=== PATIENT | male | born 1985 | race Caucasian/White ===

== ENCOUNTER 2016-09-16 15:36 | Emergency (ER) | payer OTHER ==
[2016-09-16 15:44] VITALS: RESP 16
[2016-09-16 16:02] LABS: Glucose,Whole Blood 122 mg/dL (75-99)
[2016-09-16] MEDS ORDERED: NALOXONE 0.4 MG/ML 1 ML VIAL IV STA (16:08)
[2016-09-16] MEDS ORDERED: SODIUM CHLORIDE 0.9% 1,000 ML IV ONE ×2 (16:08)
--- NOTE | 2016-09-16 16:11 | ED ---
General Adult HPI - General Chief complaint: Altered Mental Status Stated complaint: Syncope Time Seen by Provider: 09/16/16 15:52 Source: family, RN notes reviewed, old records reviewed Mode of arrival: wheelchair Limitations: no limitations, altered mental status - History of Present Illness Initial comments: This is a 31-year-old male the ER for evaluation of altered mental status. Patient not acting appropriately drooling, not answering questions. Patient's brought in by friends and brought back for evaluation. They state patient has been drooling and not acting appropriately. Patient denies drugs or alcohol. - Related Data Home Medications Medication Instructions Recorded Confirmed No Known Home Medications [No 09/16/16 09/16/16 Known Home Medications] Allergies Allergy/AdvReac Type Severity Reaction Status Date / Time Fish Containing Products Allergy Anaphylaxis Verified 09/16/16 16:26 [Fish] Review of Systems ROS Statement: Those systems with pertinent positive or pertinent negative responses have been documented in the HPI. ROS Other: All systems not noted in ROS Statement are negative. Past Medical History Past Medical History: Seizure Disorder History of Any Multi-Drug Resistant Organisms: None Reported Past Surgical History: No Surgical Hx Reported Past Psychological History: Unable to Obtain Smoking Status: Current every day smoker Past Alcohol Use History: None Reported Past Drug Use History: None Reported General Exam Limitations: altered mental status General appearance: alert, lethargic Head exam: Present: atraumatic, normocephalic, normal inspection Eye exam: Present: normal appearance, PERRL, EOMI. Absent: scleral icterus, conjunctival injection, periorbital swelling ENT exam: Present: normal exam, mucous membranes moist Neck exam: Present: normal inspection. Absent: tenderness, meningismus, lymphadenopathy Respiratory exam: Present: normal lung sounds bilaterally. Absent: respiratory distress, wheezes, rales, rhonchi, stridor Cardiovascular Exam: Present: regular rate, normal rhythm, normal heart sounds. Absent: systolic murmur, diastolic murmur, rubs, gallop, clicks GI/Abdominal exam: Present: soft, normal bowel sounds. Absent: distended, tenderness, guarding, rebound, rigid Extremities exam: Present: normal inspection, full ROM, normal capillary refill. Absent: tenderness, pedal edema, joint swelling, calf tenderness Back exam: Present: normal inspection Neurological exam: Present: alert, oriented X3, CN II-XII intact Psychiatric exam: Present: normal affect, normal mood Skin exam: Present: warm, dry, intact, normal color. Absent: rash Course Vital Signs 09/16/16 09/16/16 09/16/16 15:40 16:46 17:57 Temperature 98.7 F 98.3 F Pulse Rate 96 72 79 Respiratory 16 16 16 Rate Blood Pressure 132/84 136/78 126/90 O2 Sat by Pulse 99 100 99 Oximetry EKG Findings - EKG Comments: EKG Findings:: EKG shows normal sinus rhythm rate of 77, [place] 152, QRS 86, QTC 407 Medical Decision Making - Medical Decision Making 31 [facility] for evaluation of unresponsive all to mental status episode. At this time patient will be awake and alert walking around exam room. No complaints. No headache chest pain or shortness of breath. Patient denies drug abuse. Patient will be discharged home - Lab Data Result diagrams: 09/16/16 16:00 09/16/16 16:00 Lab Results 09/16/16 09/16/16 09/16/16 Range/Units 15:52 16:00 16:00 WBC (3.8-10.6) k/uL RBC (4.30-5.90) m/uL Hgb (13.0-17.5) gm/dL Hct (39.0-53.0) % MCV (80.0-100.0) fL MCH (25.0-35.0) pg MCHC (31.0-37.0) g/dL RDW (11.5-15.5) % Plt Count (150-450) k/uL Neutrophils % % Lymphocytes % % Monocytes % % Eosinophils % % Basophils % % Neutrophils # (1.3-7.7) k/uL Lymphocytes # (1.0-4.8) k/uL Monocytes # (0-1.0) k/uL Eosinophils # (0-0.7) k/uL Basophils # (0-0.2) k/uL PT (9.0-12.0) sec INR (<1.1) APTT (22.0-30.0) sec Sodium 141 (137-145) mmol/L Potassium 4.0 (3.5-5.1) mmol/L Chloride 107 (98-107) mmol/L Carbon Dioxide 23 (22-30) mmol/L Anion Gap 11 mmol/L BUN 8 L (9-20) mg/dL Creatinine 0.90 (0.66-1.25) mg/dL Est GFR (MDRD) Af Amer >60 (>60 ml/min/1.73 sqM) Est GFR (MDRD) Non-Af >60 (>60 ml/min/1.73 sqM) Glucose 98 (74-99) mg/dL POC Glucose (mg/dL) 122 H (75-99) mg/dL POC Glu Siebel Administrator ID Jocelyn Bermudez Calcium 9.4 (8.4-10.2) mg/dL Total Bilirubin 0.8 (0.2-1.3) mg/dL AST 255 H (17-59) U/L ALT 495 H (21-72) U/L Alkaline Phosphatase 81 (38-126) U/L Total Creatine Kinase 65 (55-170) U/L CK-MB (CK-2) 0.6 (0.0-2.4) ng/mL CK-MB (CK-2) Rel Index 0.9 Troponin I <0.012 (0.000-0.034) ng/mL Total Protein 7.5 (6.3-8.2) g/dL Albumin 4.5 (3.5-5.0) g/dL Urine Color Urine Appearance (Clear) Urine pH (5.0-8.0) Ur Specific [place] (1.001-1.035) Urine Protein (Negative) Urine Glucose (UA) (Negative) Urine Ketones (Negative) Urine Blood (Negative) Urine Nitrite (Negative) Urine Bilirubin (Negative) Urine Urobilinogen (<2.0) mg/dL Ur Leukocyte Esterase (Negative) Salicylates <1.0 mg/dL Urine Opiates Screen (NotDetected) Ur Oxycodone Screen (NotDetected) Urine Methadone Screen (NotDetected) Ur Propoxyphene Screen (NotDetected) Acetaminophen <10.0 ug/mL Ur Barbiturates Screen (NotDetected) U Tricyclic Antidepress (NotDetected) Ur Phencyclidine Scrn (NotDetected) Ur Amphetamines Screen (NotDetected) U Methamphetamines Scrn (NotDetected) U Benzodiazepines Scrn (NotDetected) Urine Cocaine Screen (NotDetected) U Marijuana (THC) Screen (NotDetected) Serum Alcohol <10 mg/dL 09/16/16 09/16/16 09/16/16 Range/Units 16:00 16:08 16:08 WBC 5.2 (3.8-10.6) k/uL RBC 5.22 (4.30-5.90) m/uL Hgb 16.8 (13.0-17.5) gm/dL Hct 47.5 (39.0-53.0) % MCV 91.0 (80.0-100.0) fL MCH 32.2 (25.0-35.0) pg MCHC 35.4 (31.0-37.0) g/dL RDW 13.9 (11.5-15.5) % Plt Count 240 (150-450) k/uL Neutrophils % 56 % Lymphocytes % 30 % Monocytes % 7 % Eosinophils % 4 % Basophils % 1 % Neutrophils # 2.9 (1.3-7.7) k/uL Lymphocytes # 1.6 (1.0-4.8) k/uL Monocytes # 0.4 (0-1.0) k/uL Eosinophils # 0.2 (0-0.7) k/uL Basophils # 0.0 (0-0.2) k/uL PT (9.0-12.0) sec INR (<1.1) APTT (22.0-30.0) sec Sodium (137-145) mmol/L Potassium (3.5-5.1) mmol/L Chloride (98-107) mmol/L Carbon Dioxide (22-30) mmol/L Anion Gap mmol/L BUN (9-20) mg/dL Creatinine (0.66-1.25) mg/dL Est GFR (MDRD) Af Amer (>60 ml/min/1.73 sqM) Est GFR (MDRD) Non-Af (>60 ml/min/1.73 sqM) Glucose (74-99) mg/dL POC Glucose (mg/dL) (75-99) mg/dL POC Glu Siebel Administrator ID Calcium (8.4-10.2) mg/dL Total Bilirubin (0.2-1.3) mg/dL AST (17-59) U/L ALT (21-72) U/L Alkaline Phosphatase (38-126) U/L Total Creatine Kinase (55-170) U/L CK-MB (CK-2) (0.0-2.4) ng/mL CK-MB (CK-2) Rel Index Troponin I (0.000-0.034) ng/mL Total Protein (6.3-8.2) g/dL Albumin (3.5-5.0) g/dL Urine Color Yellow Urine Appearance Clear (Clear) Urine pH 7.0 (5.0-8.0) Ur Specific [place] 1.005 (1.001-1.035) Urine Protein Negative (Negative) Urine Glucose (UA) Negative (Negative) Urine Ketones Negative (Negative) Urine Blood Negative (Negative) Urine Nitrite Negative (Negative) Urine Bilirubin Negative (Negative) Urine Urobilinogen 4.0 (<2.0) mg/dL Ur Leukocyte Esterase Negative (Negative) Salicylates mg/dL Urine Opiates Screen Not Detected (NotDetected) Ur Oxycodone Screen Not Detected (NotDetected) Urine Methadone Screen Not Detected (NotDetected) Ur Propoxyphene Screen Not Detected (NotDetected) Acetaminophen ug/mL Ur Barbiturates Screen Not Detected (NotDetected) U Tricyclic Antidepress Not Detected (NotDetected) Ur Phencyclidine Scrn Not Detected (NotDetected) Ur Amphetamines Screen Not Detected (NotDetected) U Methamphetamines Scrn Not Detected (NotDetected) U Benzodiazepines Scrn Not Detected (NotDetected) Urine Cocaine Screen Not Detected (NotDetected) U Marijuana (THC) Screen Detected H (NotDetected) Serum Alcohol mg/dL 09/16/16 Range/Units 16:19 WBC (3.8-10.6) k/uL RBC (4.30-5.90) m/uL Hgb (13.0-17.5) gm/dL Hct (39.0-53.0) % MCV (80.0-100.0) fL MCH (25.0-35.0) pg MCHC (31.0-37.0) g/dL RDW (11.5-15.5) % Plt Count (150-450) k/uL Neutrophils % % Lymphocytes % % Monocytes % % Eosinophils % % Basophils % % Neutrophils # (1.3-7.7) k/uL Lymphocytes # (1.0-4.8) k/uL Monocytes # (0-1.0) k/uL Eosinophils # (0-0.7) k/uL Basophils # (0-0.2) k/uL PT 11.1 (9.0-12.0) sec INR 1.1 (<1.1) APTT 26.4 (22.0-30.0) sec Sodium (137-145) mmol/L Potassium (3.5-5.1) mmol/L Chloride (98-107) mmol/L Carbon Dioxide (22-30) mmol/L Anion Gap mmol/L BUN (9-20) mg/dL Creatinine (0.66-1.25) mg/dL Est GFR (MDRD) Af Amer (>60 ml/min/1.73 sqM) Est GFR (MDRD) Non-Af (>60 ml/min/1.73 sqM) Glucose (74-99) mg/dL POC Glucose (mg/dL) (75-99) mg/dL POC Glu Siebel Administrator ID Calcium (8.4-10.2) mg/dL Total Bilirubin (0.2-1.3) mg/dL AST (17-59) U/L ALT (21-72) U/L Alkaline Phosphatase (38-126) U/L Total Creatine Kinase (55-170) U/L CK-MB (CK-2) (0.0-2.4) ng/mL CK-MB (CK-2) Rel Index Troponin I (0.000-0.034) ng/mL Total Protein (6.3-8.2) g/dL Albumin (3.5-5.0) g/dL Urine Color Urine Appearance (Clear) Urine pH (5.0-8.0) Ur Specific [place] (1.001-1.035) Urine Protein (Negative) Urine Glucose (UA) (Negative) Urine Ketones (Negative) Urine Blood (Negative) Urine Nitrite (Negative) Urine Bilirubin (Negative) Urine Urobilinogen (<2.0) mg/dL Ur Leukocyte Esterase (Negative) Salicylates mg/dL Urine Opiates Screen (NotDetected) Ur Oxycodone Screen (NotDetected) Urine Methadone Screen (NotDetected) Ur Propoxyphene Screen (NotDetected) Acetaminophen ug/mL Ur Barbiturates Screen (NotDetected) U Tricyclic Antidepress (NotDetected) Ur Phencyclidine Scrn (NotDetected) Ur Amphetamines Screen (NotDetected) U Methamphetamines Scrn (NotDetected) U Benzodiazepines Scrn (NotDetected) Urine Cocaine Screen (NotDetected) U Marijuana (THC) Screen (NotDetected) Serum Alcohol mg/dL - Radiology Data Radiology results: report reviewed (CT brain is negative for acute disease), image reviewed Disposition Clinical Impression: Altered mental status Disposition: HOME SELF-CARE Condition: Good Instructions: Altered Mental Status (ED) Referrals: None,Stated [Primary Care Provider] - 1-2 days
[2016-09-16 16:27] LABS: Basophils % (A) 1 %; CHCM 36.4; Eosinophils # (A) 0.2 k/uL (0-0.7); Eosinophils % (A) 4 %; HCT 47.5 % (39.0-53.0); HDW 2.87; HGB 16.8 gm/dL (13.0-17.5); Luc # (Auto) 0.15; Luc % (Auto) 3; Lymphocytes # (A) 1.6 k/uL (1.0-4.8); Lymphocytes % (A) 30 %; MCH 32.2 pg (25.0-35.0); MCHC 35.4 g/dL (31.0-37.0); Mean Platelet Volume 6.5; Monocytes # (A) 0.4 k/uL (0-1.0); Monocytes % (A) 7 %; Neutrophils # (A) 2.9 k/uL (1.3-7.7); Neutrophils % (A) 56 %; RBC 5.22 m/uL (4.30-5.90); RDW 13.9 % (11.5-15.5); WBC 5.2 k/uL (3.8-10.6); WBC (Perox) 5.45
[2016-09-16 16:37] LABS: Appearance,Urine Clear (Clear); Bilirubin,Urine Negative (Negative); Glucose,Urine (UA) Negative (Negative); Ketones,Urine Negative (Negative); Leukocyte Esterase,Urine Negative (Negative); Nitrite,Urine Negative (Negative); Protein,Urine Negative (Negative); Specific Gravity,Urine 1.005 (1.001-1.035); UA Billing (MACRO vs. MICRO) CHEM
[2016-09-16 16:38] LABS: ALT 495 U/L (21-72); AST 255 U/L (17-59); Acetaminophen <10.0 ug/mL; Alcohol <10 mg/dL; Alkaline Phosphatase 81 U/L (38-126); Anion Gap 11 mmol/L; Blood Urea Nitrogen 8 mg/dL (9-20); Calcium 9.4 mg/dL (8.4-10.2); Carbon Dioxide 23 mmol/L (22-30); Chloride 107 mmol/L (98-107); Glucose 98 mg/dL (74-99); Non-African American GFR(MDRD) >60 (>60 ml/min/1.73 sqM); Salicylate <1.0 mg/dL; Sodium 141 mmol/L (137-145); Total Bilirubin 0.8 mg/dL (0.2-1.3); Total Protein 7.5 g/dL (6.3-8.2)
[2016-09-16 16:48] LABS: Creatine Kinase 65 U/L (55-170)
--- NOTE | 2016-09-16 16:53 | CT ---
EXAMINATION TYPE: CT brain wo con DATE OF EXAM: 09/16/2016 COMPARISON: NONE HISTORY: Fatigue and left sided facial numbness. CT DLP: 1121.00 mGycm Automated exposure control for dose reduction was used. FINDINGS: The ventricles of normal size. There is no mass effect nor midline shift. There is no sign of intracr anial hemorrhage. There is opacification of the right maxillary sinus with some expansion into the na sopharynx. The calvarium is intact. IMPRESSION: No intracranial abnormality. Expansile lesion in the right maxillary sinus raises the possibility of mucocele or tumor. Follow-up is recommended. CT scan of the sinuses would be helpful for further eval uation if clinically indicated.
[2016-09-16 16:55] LABS: INR 1.1 (<1.1); Partial Thromboplastin Time 26.4 sec (22.0-30.0); Prothrombin Time 11.1 sec (9.0-12.0)
[2016-09-16 17:00] LABS: Creatine Kinase MB 0.6 ng/mL (0.0-2.4); Troponin I <0.012 ng/mL (0.000-0.034)
[2016-09-16 17:59] VITALS: BP 126/90; PULSE 79; TEMP 98.3
== END 2016-09-16 17:57 | disposition home or self-care (01) ==
LOC: EC 15:36
DX: R41.82 Altered mental status, unspecified (principal); R55 Syncope and collapse; F17.200 Nicotine dependence, unspecified, uncomplicated; Z91.013 Allergy to seafood
CPT/HCPCS: 99285; 96374; 36415; 93005; 80053; 82550; 82553; 84484; 85025; 85610; 85730; 81003; 80306; 83520 ×2; 80320; 87086; 70450; J2310

== ENCOUNTER 2018-07-21 17:26 | Emergency (ER) | payer OTHER ==
[2018-07-21 17:59] VITALS: TEMP 97.8
[2018-07-21] MEDS ORDERED: CYCLOBENZAPRINE 10 MG TAB PO STA (19:24)
[2018-07-21] MEDS ORDERED: KETOROLAC 30 MG/ML 1 ML VIAL IM STA (19:24)
--- NOTE | 2018-07-21 20:13 | XR ---
EXAMINATION TYPE: XR shoulder complete LT DATE OF EXAM: 07/21/2018 COMPARISON: NONE HISTORY: Pain TECHNIQUE: 3 views FINDINGS: I see no fracture nor dislocation. Glenohumeral joint is intact. There are no pathologic ca lcifications. IMPRESSION: Negative left shoulder exam.
--- NOTE | 2018-07-21 20:18 | ED ---
Upper Extremity HPI - General Chief Complaint: Extremity Injury, Upper Stated Complaint: lt arm pain Time Seen by Provider: 07/21/18 18:47 Source: patient Mode of arrival: ambulatory Limitations: no limitations - History of Present Illness Initial Comments: 33-year-old male patient presents to the emergency department today for evaluation of left shoulder pain. Patient states he was lifting a dresser earlier in the day and started having pain shortly after. Patient states he does have history of left shoulder injury but never had a evaluated or treated. Patient states he is having significant pain with any type of movement of the shoulder. He denies any numbness or tingling to the arm or hand. Denies any neck or back pain with this. Patient denies any headache, neck pain, back pain, chest pain, shortness of breath, dizziness, weakness, abdominal pain, nausea, vomiting, or difficulties with bowel movements or urination. - Related Data Previous Rx's Medication Instructions Recorded Cyclobenzaprine [Flexeril] 10 mg PO TID #15 tab 07/21/18 Ibuprofen [Motrin] 600 mg PO Q8HR PRN #30 tab 07/21/18 Allergies Allergy/AdvReac Type Severity Reaction Status Date / Time Fish Containing Products Allergy Anaphylaxis Verified 07/21/18 17:59 [Fish] Review of Systems ROS Statement: Those systems with pertinent positive or pertinent negative responses have been documented in the HPI. ROS Other: All systems not noted in ROS Statement are negative. Past Medical History Past Medical History: Seizure Disorder History of Any Multi-Drug Resistant Organisms: None Reported Past Surgical History: No Surgical Hx Reported Past Psychological History: Unable to Obtain Smoking Status: Current every day smoker Past Alcohol Use History: None Reported Past Drug Use History: None Reported General Exam Limitations: no limitations General appearance: alert, in no apparent distress, other (Physical well- developed, well-nourished adult male patient in no acute distress. Vital signs upon presentation are temperature 98.7F, pulse 77, respirations 16, blood pressure 119/80, pulse ox 97% on room air.) ENT exam: Present: normal exam, normal oropharynx, mucous membranes moist Respiratory exam: Present: normal lung sounds bilaterally. Absent: respiratory distress, wheezes, rales, rhonchi, stridor Cardiovascular Exam: Present: regular rate, normal rhythm, normal heart sounds. Absent: systolic murmur, diastolic murmur, rubs, gallop, clicks GI/Abdominal exam: Present: soft, normal bowel sounds. Absent: distended, tenderness, guarding, rebound, rigid Extremities exam: Present: normal inspection, normal capillary refill, other (Skin to the left upper extremity is pink, warm, dry. Cap refills less than 3 seconds. Patient has full passive range of motion but does report increased pain. Radial pulses 2+ and equal bilaterally.). Absent: full ROM (Decreased range of motion due to increased pain with movement), tenderness, pedal edema, joint swelling, calf tenderness Neurological exam: Present: alert, oriented X3, CN II-XII intact Psychiatric exam: Present: normal affect, normal mood Skin exam: Present: warm, dry, intact, normal color. Absent: rash Course Vital Signs 07/21/18 07/21/18 17:58 20:30 Temperature 97.8 F Pulse Rate 77 81 Respiratory 16 18 Rate Blood Pressure 119/80 137/80 O2 Sat by Pulse 97 96 Oximetry Medical Decision Making - Medical Decision Making 33-year-old male patient presents to the emergency department today for evaluation of left shoulder pain after doing heavy lifting earlier in the day. Physical examination is relatively unremarkable. Neurovascular status is intact. X-ray was obtained and showed no acute abnormalities. Symptoms are consistent with left shoulder strain. He is educated regarding range of motion and use of anti-inflammatory medication for symptom relief. Patient be discharged home at this time to follow-up with his primary care physician for recheck in 1-2 days. Return parameters discussed in detail. He verbalizes understanding and agrees with this plan. - Radiology Data Radiology results: report reviewed, image reviewed 3 views of the left shoulder obtained. Report was reviewed in its entirety. I mpression by Dr. Verduzco shows negative left shoulder exam. Disposition Clinical Impression: Shoulder strain Disposition: HOME SELF-CARE Condition: Good Instructions (If sedation given, give patient instructions): Shoulder Sprain (ED) Additional Instructions: Apply ice to the left shoulder for the first 24 hours and switch to warm moist take medications as directed. Follow-up with orthopedic podiatrist for recheck as soon as possible. Return to the emergency department immediately for any new, worsening, or concerning symptoms. Prescriptions: Cyclobenzaprine [Flexeril] 10 mg PO TID #15 tab Ibuprofen [Motrin] 600 mg PO Q8HR PRN #30 tab PRN Reason: Pain Is patient prescribed a controlled substance at d/c from ED?: No Referrals: None,Stated [Primary Care Provider] - 1-2 days Time of Disposition: 20:17
[2018-07-21 20:33] VITALS: BP 137/80; PULSE 81; RESP 18
== END 2018-07-21 20:30 | disposition home or self-care (01) ==
LOC: EC 17:26
DX: S46.912A Strain of unspecified muscle, fascia and tendon at shoulder and upper arm level, left arm, initial encounter (principal); F17.200 Nicotine dependence, unspecified, uncomplicated; X50.0XXA Overexertion from strenuous movement or load, initial encounter; Y93.89 Activity, other specified
CPT/HCPCS: 73030; 99283; 96372; J1885

== ENCOUNTER → 2020-01-24 | Outpatient (CLI) | payer OTHER ==
--- NOTE | 2020-01-24 08:54 | US ---
EXAMINATION TYPE: US abdomen complete DATE OF EXAM: 01/24/2020 COMPARISON: NONE CLINICAL HISTORY: R19.00 ABD WALL MASS OF LT FLANK Mass seen on x-ray at 's office, not done at this facility. EXAM MEASUREMENTS: Liver Length: 13.3 cm Gallbladder Wall: 0.2 cm CBD: 0.3 cm Spleen: 12.2 cm Right Kidney: 12.0 x 5.7 x 5.0 cm Left Kidney: 11.4 x 5.2 x 4.8 cm Pancreas: Obscured by bowel gas Liver: wnl Gallbladder: wnl Evidence for sonographic Flores's sign: no CBD: wnl Spleen: wnl Right Kidney: No hydronephrosis or masses seen Left Kidney: No hydronephrosis or masses seen Upper IVC: wnl Abd Aorta: portions visualized wnl, somewhat obscured by overlying bowel gas Possible mass arising from left kidney not visualized on today's ultrasound. Second technologist chad albertot in to scan as well. The liver is homogenous. The intrahepatic portion of the IVC and proximal abdominal aorta are within normal limits. There is no evidence of cholelithiasis. Common bile duct is unremarkable. The visu alized portions of the pancreas are homogenous. The spleen is unremarkable. Kidneys are symmetric a nd free of hydronephrosis. No renal lesions are seen. IMPRESSION: No mass is confirmed as noted above. If symptoms persist or if there is continued clinical concern th en I do recommend CT scan of the abdomen and pelvis with contrast.
== END | disposition home or self-care (01) ==
LOC: RADUSWWP 06:55
PROVIDERS: ATTEND Student in an Organized Health Care Education/Training Program
DX: R19.00 Intra-abdominal and pelvic swelling, mass and lump, unspecified site (principal)
CPT/HCPCS: 76700

== ENCOUNTER 2020-01-25 16:16 | Emergency (ER) | payer OTHER ==
[2020-01-25 16:25] VITALS: BP 133/83; PULSE 79; RESP 17; TEMP 98.2
[2020-01-25] MEDS ORDERED: SODIUM CHLORIDE 0.9% 1,000 ML IV STA (16:46)
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
[2020-01-25 17:05] LABS: Appearance,Urine Clear (Clear); Basophils # (A) 0.1 k/uL (0-0.2); Basophils % (A) 2 %; Bilirubin,Urine Negative (Negative); Blood,Urine Negative (Negative); Color,Urine Yellow; Eosinophils # (A) 0.3 k/uL (0-0.7); Eosinophils % (A) 5 %; Glucose,Urine (UA) Negative (Negative); HCT 47.5 % (39.0-53.0); HGB 16.1 gm/dL (13.0-17.5); Ketones,Urine Negative (Negative); Leukocyte Esterase,Urine Negative (Negative); Lymphocytes % (A) 32 %; MCH 31.3 pg (25.0-35.0); MCV 92.3 fL (80.0-100.0); Mean Platelet Volume 6.2; Monocytes # (A) 0.4 k/uL (0-1.0); Monocytes % (A) 6 %; Neutrophils # (A) 3.4 k/uL (1.3-7.7); Neutrophils % (A) 54 %; Nitrite,Urine Negative (Negative); Platelet Count 238 k/uL (150-450); Protein,Urine Negative (Negative); RBC 5.14 m/uL (4.30-5.90); WBC 6.3 k/uL (3.8-10.6)
[2020-01-25 17:16] LABS: Amphetamine Screen,Urine Not Detected (NotDetected); Barbiturate Screen,Urine Not Detected (NotDetected); Benzodiazepines Screen,Urine Not Detected (NotDetected); Cocaine Screen,Urine Not Detected (NotDetected); Methadone Screen, Urine Not Detected (NotDetected); Opiate Screen,Urine Not Detected (NotDetected); Oxycodone Screen, Urine Not Detected (NotDetected); Partial Thromboplastin Time 24.7 sec (22.0-30.0); Phencyclidine Screen,Urine Not Detected (NotDetected); Prothrombin Time 10.2 sec (9.0-12.0); Tricyclic Antidepressant,Urine Not Detected (NotDetected); Urn Cannabinoid Scrn Detected (NotDetected)
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
--- NOTE | 2020-01-25 17:18 | XR ---
EXAMINATION TYPE: XR chest 1V portable DATE OF EXAM: 01/25/2020 COMPARISON: NONE HISTORY: Pain. Fall. TECHNIQUE: Single view FINDINGS: Heart and mediastinum are normal. Lungs are clear. Diaphragm is normal. Bony thorax appears normal. IMPRESSION: Normal chest.
--- NOTE | 2020-01-25 17:18 | XR ---
EXAMINATION TYPE: XR pelvis AP view DATE OF EXAM: 01/25/2020 COMPARISON: NONE HISTORY: Left hip pain TECHNIQUE: 2 views FINDINGS: The pelvic ring is intact. Proximal femurs are intact. Sacroiliac joints appear normal. IMPRESSION: Negative exam. No fracture seen.
[2020-01-25 17:21] LABS: ALT 80 U/L (4-49); AST 39 U/L (17-59); African American GFR (CKD) >90 (>60 ml/min/1.73 sqM); Albumin 4.4 g/dL (3.5-5.0); Alcohol <10 mg/dL; Alkaline Phosphatase 61 U/L (38-126); Anion Gap 8 mmol/L; Blood Urea Nitrogen 8 mg/dL (9-20); Calcium 8.9 mg/dL (8.4-10.2); Carbon Dioxide 22 mmol/L (22-30); Chloride 107 mmol/L (98-107); Glucose 84 mg/dL (74-99); Non-African American GFR(CKD) >90 (>60 ml/min/1.73 sqM); Potassium 3.8 mmol/L (3.5-5.1); Sodium 137 mmol/L (137-145); Total Bilirubin 0.9 mg/dL (0.2-1.3); Total Protein 7.2 g/dL (6.3-8.2)
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
== END 2020-01-25 18:30 | disposition home or self-care (01) ==
LOC: EC 16:16
DX: M54.5 Low back pain (principal); M25.552 Pain in left hip; F17.200 Nicotine dependence, unspecified, uncomplicated; Z91.013 Allergy to seafood; V03.10XA Pedestrian on foot injured in collision with car, pick-up truck or van in traffic accident, initial encounter; Y92.488 Other paved roadways as the place of occurrence of the external cause; Y93.89 Activity, other specified
CPT/HCPCS: 99284 ×2; 36415; 86900; 86901; 80053; 84484; 85025; 85610; 85730; 86850; 81003; 80306; 72170; 73502; 71045; 74177; G0480; Q9967; 80320

== ENCOUNTER → 2020-07-03 | Outpatient (CLI) | payer OTHER ==
[2020-07-03 18:53] LABS: Basophils # (A) 0.06 X 10*3/uL (0.00-0.10); Basophils % (A) 0.9 %; Eosinophils # (A) 0.44 X 10*3/uL (0.04-0.35); Eosinophils % (A) 6.8 %; HCT 46.2 % (39.6-50.0); HGB 15.8 g/dL (13.0-17.0); Lymphocytes # (A) 2.05 X 10*3/uL (0.90-5.00); Lymphocytes % (A) 31.5 %; MCH 31.5 pg (27.0-32.0); MCHC 34.2 g/dL (32.0-37.0); Mean Platelet Volume 9.4 fL (9.5-12.2); Monocytes # (A) 0.48 X 10*3/uL (0.20-1.00); Monocytes % (A) 7.4 %; Neutrophils # (A) 3.46 X 10*3/uL (1.80-7.70); Neutrophils % (A) 53.2 %; Platelet Count 235 X 10*3/uL (140-440); RBC 5.02 X 10*6/uL (4.40-5.60); RDW 13.4 % (11.5-14.5)
[2020-07-03 19:31] LABS: INR 0.94 (0.90-1.11); Prothrombin Time 10.3 sec (9.9-11.9)
[2020-07-03 20:57] LABS: Albumin 4.9 g/dL (3.80-4.90); Albumin/Globulin Ratio 2.23 (1.60-3.17); Bilirubin, Conjugated 0.2 mg/dL (0.20-0.40); Bilirubin,Unconjugated 0.3 mg/dL; Globulin 2.2 g/dL (1.6-3.3); Total Bilirubin 0.5 mg/dL (0.3-1.2); Total Protein 7.1 g/dL (6.2-8.2)
[2020-07-05 11:49] LABS: HCV Qualitative Result DETECTED (Not detected); HCV Quant Log 4.82 (<1.08)
== END | disposition home or self-care (01) ==
LOC: LABWHC1 12:24
PROVIDERS: ATTEND Physician Assistant
DX: B18.2 Chronic viral hepatitis C (principal)
CPT/HCPCS: 36415; 80076; 85025; 85610; 87522; 87902

== ENCOUNTER 2020-07-07 19:05 | Emergency (ER) | payer OTHER ==
[2020-07-07 19:12] VITALS: TEMP 98.1
--- NOTE | 2020-07-07 19:16 | ED ---
Chest Pain HPI - General Chief Complaint: Chest Pain Stated Complaint: chest pain Time Seen by Provider: 07/07/20 19:14 Source: patient Mode of arrival: ambulatory Limitations: no limitations - History of Present Illness Initial Comments: Patient is a 35-year-old male with past medical history of COPD presents emergency room with reported chest pain. Patient states it started 20 minutes prior to hospital arrival while he was outside working on a fence. States the pain radiates into his left arm and neck. Does make him feel short of breath. Admits to a large family history of cardiac disease however denies any personal history. Denies any fevers or chills. No cough. Denies any nausea or vomiting. No history of DVT or PE. Denies family history of connective tissue disorder. No other alleviating, Perceptin or modifying factors - Related Data Home Medications Medication Instructions Recorded Confirmed Albuterol Nebulized [Ventolin 2.5 mg INHALATION RT-Q6H PRN 07/07/20 07/07/20 Nebulized] Omeprazole 20 mg PO DAILY 07/07/20 07/07/20 levETIRAcetam [Keppra] 250 mg PO BID 07/07/20 07/07/20 Allergies Allergy/AdvReac Type Severity Reaction Status Date / Time Fish Containing Products Allergy Anaphylaxis Verified 07/07/20 20:54 [Fish] shellfish derived [Shellfish] Allergy Anaphylaxis Verified 07/07/20 20:54 Review of Systems ROS Statement: Those systems with pertinent positive or pertinent negative responses have been documented in the HPI. ROS Other: All systems not noted in ROS Statement are negative. EKG Findings - EKG Comments: EKG Findings:: EKG demonstrates a normal sinus rhythm with a ventricular rate of 89. WV interval 170. QRS 84. QTC 413. Q wave with an inverted T-wave in lead 3. No acute ST segment elevations Past Medical History Past Medical History: COPD, Seizure Disorder Additional Past Medical History / Comment(s): TIA History of Any Multi-Drug Resistant Organisms: None Reported Past Surgical History: No Surgical Hx Reported Past Psychological History: Anxiety Smoking Status: Current every day smoker Past Alcohol Use History: None Reported, Rare Past Drug Use History: Marijuana General Exam Limitations: no limitations Course Vital Signs 07/07/20 19:10 Temperature 98.1 F Pulse Rate 109 H Respiratory 18 Rate Blood Pressure 141/86 O2 Sat by Pulse 98 Oximetry Chest Pain MDM - MDM Upon arrival patient is placed in room 3. A thorough history and physical exam was performed. Laboratory studies were conducted. D-dimer is high at 0.66. AST and ALTs also elevated. Chest x-ray demonstrates left basilar atelectasis. CT of the patient's chest demonstrates no acute PE. Results are discussed the patient. Did recommend a second troponin level however the patient refused that he wants to go home at this time as he does feel better. Risks are discussed with patient and he is lucid, capable of making his own decisions and wants to go home at this time. He does have an appointment with a business analyst to follow up for an echo. Patient is instructed to return to the emergency room for any new or worsening symptoms. Discharged in stable condition Disposition Clinical Impression: Chest pain Disposition: HOME SELF-CARE Condition: Stable Instructions (If sedation given, give patient instructions): Chest Pain (ED) Additional Instructions: Please follow-up with your primary care doctor in 2-4 days. Return to the emergency department any new worsening symptoms. You need to have an Echo performed. Is patient prescribed a controlled substance at d/c from ED?: No Referrals: Haven Chakraborty MD [Primary Care Provider] - 1-2 days Time of Disposition: 21:39
[2020-07-07 19:34] LABS: Basophils # (A) 0.1 k/uL (0-0.2); Basophils % (A) 1 %; Eosinophils # (A) 0.6 k/uL (0-0.7); Eosinophils % (A) 7 %; HCT 43.9 % (39.0-53.0); HGB 15.8 gm/dL (13.0-17.5); Lymphocytes # (A) 2.1 k/uL (1.0-4.8); Lymphocytes % (A) 27 %; MCH 31.9 pg (25.0-35.0); MCHC 35.9 g/dL (31.0-37.0); MCV 88.8 fL (80.0-100.0); Mean Platelet Volume 6.5; Monocytes # (A) 0.4 k/uL (0-1.0); Monocytes % (A) 5 %; Neutrophils # (A) 4.4 k/uL (1.3-7.7); Neutrophils % (A) 58 %; Platelet Count 234 k/uL (150-450); RBC 4.94 m/uL (4.30-5.90); WBC 7.5 k/uL (3.8-10.6)
[2020-07-07 19:46] LABS: ALT 159 U/L (4-49); AST 101 U/L (17-59); African American GFR (CKD) >90 (>60 ml/min/1.73 sqM); Albumin 4.5 g/dL (3.5-5.0); Alkaline Phosphatase 64 U/L (38-126); Anion Gap 8 mmol/L; Blood Urea Nitrogen 8 mg/dL (9-20); Calcium 9.3 mg/dL (8.4-10.2); Carbon Dioxide 22 mmol/L (22-30); Chloride 107 mmol/L (98-107); Glucose 117 mg/dL (74-99); Lipase 50 U/L (23-300); Magnesium 1.8 mg/dL (1.6-2.3); Non-African American GFR(CKD) >90 (>60 ml/min/1.73 sqM); Potassium 3.3 mmol/L (3.5-5.1); Sodium 137 mmol/L (137-145); Total Bilirubin 0.5 mg/dL (0.2-1.3); Total Protein 7.5 g/dL (6.3-8.2)
[2020-07-07 19:54] LABS: Partial Thromboplastin Time 24.2 sec (22.0-30.0); Prothrombin Time 10.3 sec (9.0-12.0)
[2020-07-07 19:56] LABS: D-Dimer 0.66 mg/L FEU (<0.60)
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
--- NOTE | 2020-07-07 21:25 | CT ---
EXAMINATION TYPE: CT chest angio for PE DATE OF EXAM: 07/07/2020 COMPARISON: Same-day radiograph. HISTORY: Mid to left sided chest pain with difficulty breathing. CT DLP: 378.4 mGycm Automated exposure control for dose reduction was used. CONTRAST: CT Chest for pulmonary embolism performed with with IV Contrast, patient injected with 100 mL of Isov ue 370. FINDINGS: LUNGS: There is mild dependent atelectasis. There is no concerning parenchymal mass or nodule identif ied. There is no pleural effusion or pneumothorax seen. The tracheobronchial tree is patent. MEDIASTINUM: There is satisfactory enhancement of the pulmonary artery and its branches, there is no CT evidence for pulmonary embolism. There are no greater than 1 cm hilar or mediastinal lymph nodes. No pericardial effusion is seen. OTHER: No additional significant abnormality is seen. IMPRESSION: No acute PE or other cardiopulmonary abnormality.
[2020-07-07 22:21] VITALS: BP 132/80; PULSE 92; RESP 20
== END 2020-07-07 22:24 | disposition home or self-care (01) ==
LOC: EC 19:05
DX: R07.89 Other chest pain (principal); J44.9 Chronic obstructive pulmonary disease, unspecified
CPT/HCPCS: 36415; 93005; 85379; 80053; 83690; 83735; 84484; 85025; 85610; 85730; 71046; 71275; 99285; Q9967

== ENCOUNTER → 2020-07-10 | Outpatient (CLI) | payer OTHER | LOC: CPPFTMAIN 08:31 | PROVIDERS: ATTEND Family Medicine | DX: J45.40 Moderate persistent asthma, uncomplicated (principal) | CPT/HCPCS: 94060; 94726; 94729 ==

== ENCOUNTER → 2020-09-26 | Outpatient (CLI) | payer OTHER ==
[2020-09-26 22:35] LABS: Basophils # (A) 0.04 X 10*3/uL (0.00-0.10); Basophils % (A) 0.5 %; Eosinophils # (A) 0.25 X 10*3/uL (0.04-0.35); Eosinophils % (A) 3.4 %; HCT 45.4 % (39.6-50.0); HGB 15.6 g/dL (13.0-17.0); Lymphocytes # (A) 2.39 X 10*3/uL (0.90-5.00); Lymphocytes % (A) 32.4 %; MCH 30.9 pg (27.0-32.0); MCHC 34.4 g/dL (32.0-37.0); MCV 89.9 fL (80.0-97.0); Mean Platelet Volume 9.6 fL (9.5-12.2); Monocytes # (A) 0.41 X 10*3/uL (0.20-1.00); Monocytes % (A) 5.6 %; Neutrophils # (A) 4.24 X 10*3/uL (1.80-7.70); Neutrophils % (A) 57.6 %; Platelet Count 247 X 10*3/uL (140-440); RBC 5.05 X 10*6/uL (4.40-5.60); RDW 13.1 % (11.5-14.5); WBC 7.37 X 10*3/uL (4.50-10.00)
[2020-09-27 05:27] LABS: ALT 15 U/L (10-49); AST 21 U/L (14-35); Albumin/Globulin Ratio 1.92 (1.60-3.17); Alkaline Phosphatase 68 U/L (41-126); Bilirubin, Conjugated <0.20 mg/dL (0.20-0.40); Globulin 2.4 g/dL (1.6-3.3); Total Bilirubin 0.4 mg/dL (0.2-1.2)
== END | disposition home or self-care (01) ==
LOC: LABWHC1 14:59
PROVIDERS: ATTEND Physician Assistant
DX: B18.2 Chronic viral hepatitis C (principal)
CPT/HCPCS: 36415; 80076; 85025; 87522

== ENCOUNTER 2021-01-31 12:57 | Emergency (ER) | payer OTHER ==
[2021-01-31 13:27] VITALS: BP 138/86; PULSE 97; RESP 17; TEMP 98.3
--- NOTE | 2021-01-31 14:19 | ED ---
Upper Extremity HPI - General Chief Complaint: Extremity Injury, Upper Stated Complaint: shoulder injury Time Seen by Provider: 01/31/21 13:29 Source: patient, RN notes reviewed Mode of arrival: ambulatory Limitations: no limitations - History of Present Illness Initial Comments: Patient is a 35-year-old male presenting to the emergency Department with complaints of posterior left shoulder pain after working on a car 2 days ago. Patient states she was helping holding up a fender on a car, he had his left hand underneath and was pushing up and out will for proximally 5 minutes. He started having some burning in the left posterior shoulder area and it has been sore ever since. He states he is a hard time using the left arm secondary to this discomfort. Denies any previous injuries or surgeries of his left shoulder. No numbness and tingling down the left arm. He denies any fevers. He has no further complaints. - Related Data Home Medications Medication Instructions Recorded Confirmed Albuterol Nebulized [Ventolin 2.5 mg INHALATION RT-Q6H PRN 07/07/20 07/07/20 Nebulized] Omeprazole 20 mg PO DAILY 07/07/20 07/07/20 levETIRAcetam [Keppra] 250 mg PO BID 07/07/20 07/07/20 Allergies Allergy/AdvReac Type Severity Reaction Status Date / Time Fish Containing Products Allergy Anaphylaxis Verified 01/31/21 13:27 [Fish] shellfish derived [Shellfish] Allergy Anaphylaxis Verified 01/31/21 13:27 Review of Systems ROS Statement: Those systems with pertinent positive or pertinent negative responses have been documented in the HPI. ROS Other: All systems not noted in ROS Statement are negative. Past Medical History Past Medical History: COPD, Seizure Disorder Additional Past Medical History / Comment(s): TIA, Hx HEP c History of Any Multi-Drug Resistant Organisms: None Reported Past Surgical History: No Surgical Hx Reported Past Psychological History: Anxiety Smoking Status: Current every day smoker Past Alcohol Use History: None Reported Past Drug Use History: Marijuana General Exam - General Exam Comments Initial Comments: GENERAL: Patient is well-developed and well-nourished. Patient is nontoxic and in no acute distress. HEAD: Atraumatic, normocephalic. EYES: Pupils equal round and reactive to light, extraocular movements intact, sclera anicteric, conjunctiva are normal. Eyelids were unremarkable. NECK: Normal range of motion, supple without lymphadenopathy or JVD. No midline tenderness. LUNGS: Unlabored respirations. Breath sounds clear to auscultation bilaterally and equal. No wheezes rales or rhonchi. HEART: Regular rate and rhythm without murmurs, rubs or gallops. MUSCULOSKELETAL: She has decreased active range of motion of the left shoulder secondary to pain and discomfort in the left posterior aspect around the scapula, latissimus dorsi muscle. He has spasming of this area as well. No clubbing or cyanosis. SKIN: Warm, Dry, normal turgor, no rashes or lesions noted. Limitations: no limitations Course Vital Signs 01/31/21 13:23 Temperature 98.3 F Pulse Rate 97 Respiratory 17 Rate Blood Pressure 138/86 O2 Sat by Pulse 96 Oximetry Medical Decision Making - Medical Decision Making Patient is a 35-year-old male here at the posterior left shoulder pain after working on a car 2 days ago. Exam is consistent with muscle spasms, strain of the lateral muscle. I recommended heat to the area, gentle stretching, ibuprofen for any discomfort. Also given a short course of muscle relaxer. He is agreement with this plan and care and he is stable for discharge. Disposition Clinical Impression: Left shoulder pain, Muscle spasm Disposition: HOME SELF-CARE Condition: Stable Instructions (If sedation given, give patient instructions): Thoracic Back Strain (ED) Additional Instructions: Please return to the Emergency Department if symptoms worsen or any other concerns. Recommend heat to the area, gentle massage, ibuprofen for any discomfort. A trial of muscle relaxers. Follow-up with your primary care if symptoms persist. Is patient prescribed a controlled substance at d/c from ED?: No Referrals: Haven Chakraborty MD [Primary Care Provider] - 1-2 days Time of Disposition: 14:19
== END 2021-01-31 14:44 | disposition home or self-care (01) ==
LOC: EC 12:57
DX: M25.512 Pain in left shoulder (principal); M62.838 Other muscle spasm; J44.9 Chronic obstructive pulmonary disease, unspecified; G40.909 Epilepsy, unspecified, not intractable, without status epilepticus; F17.200 Nicotine dependence, unspecified, uncomplicated; Z86.73 Personal history of transient ischemic attack (TIA), and cerebral infarction without residual deficits; Z91.013 Allergy to seafood; Z79.899 Other long term (current) drug therapy; X50.0XXA Overexertion from strenuous movement or load, initial encounter; Y92.009 Unspecified place in unspecified non-institutional (private) residence as the place of occurrence of the external cause
CPT/HCPCS: 99283

== ENCOUNTER → 2021-02-15 | Outpatient (CLI) | payer OTHER ==
--- NOTE | 2021-02-15 15:25 | XR ---
Left shoulder HISTORY:Z09, M25.512 3 views of left shoulder Distal clavicle is superiorly displaced in relation to the acromion. Left lung apex as visualized is normal. There is no evident fracture or dislocation. IMPRESSION: Acromioclavicular separation.
== END | disposition home or self-care (01) ==
LOC: RADXRMAIN 10:10
PROVIDERS: ATTEND Family Medicine
DX: Z09 Encounter for follow-up examination after completed treatment for conditions other than malignant neoplasm (principal); S43.102A Unspecified dislocation of left acromioclavicular joint, initial encounter; X58.XXXA Exposure to other specified factors, initial encounter

== ENCOUNTER 2021-08-21 10:57 | Emergency (ER) | payer OTHER ==
[2021-08-21 11:05] VITALS: RESP 16
[2021-08-21] MEDS ORDERED: SODIUM CHLORIDE 0.9% 500 ML 500 ML IV STA (11:33)
[2021-08-21] MEDS ORDERED: levETIRAcetam IV 1,500 MG in SALINE 1 100ML.BAG IVPB STA (11:47)
[2021-08-21 12:33] LABS: ALT 16 U/L (4-49); AST 30 U/L (17-59); African American GFR (CKD) >90 (>60 ml/min/1.73 sqM); Albumin 4.5 g/dL (3.5-5.0); Alkaline Phosphatase 65 U/L (38-126); Anion Gap 9 mmol/L; Blood Urea Nitrogen 8 mg/dL (9-20); Calcium 9.1 mg/dL (8.4-10.2); Carbon Dioxide 23 mmol/L (22-30); Chloride 106 mmol/L (98-107); Glucose 104 mg/dL (74-99); Magnesium 2.3 mg/dL (1.6-2.3); Non-African American GFR(CKD) >90 (>60 ml/min/1.73 sqM); Potassium 3.7 mmol/L (3.5-5.1); Sodium 138 mmol/L (137-145); Total Bilirubin 1.2 mg/dL (0.2-1.3); Total Protein 7.4 g/dL (6.3-8.2)
--- NOTE | 2021-08-21 12:56 | ED ---
Seizure HPI - General Chief Complaint: Seizure Stated Complaint: Seizure Time Seen by Provider: 08/21/21 11:27 Source: family, EMS, RN notes reviewed Mode of arrival: EMS Limitations: no limitations - History of Present Illness Initial Comments: This a 36-year-old male presents emergency Department with chief complaint of seizure. Patient had a seizure at her friend's house today. Patient states he feels tired which is usual after having a seizure. Patient states that he has a known seizure disorder supposed and States has not been taking it. Patient denies any significant tongue injury, difficulty breathing, chest pain, nausea vomiting no blurred vision no focal weakness - Related Data Previous Rx's Medication Instructions Recorded levETIRAcetam [Keppra] 500 mg PO Q12HR #60 tab 08/21/21 Allergies Allergy/AdvReac Type Severity Reaction Status Date / Time Fish Containing Products Allergy Anaphylaxis Verified 08/21/21 12:47 [Fish] shellfish derived [Shellfish] Allergy Anaphylaxis Verified 08/21/21 12:47 Review of Systems ROS Statement: Those systems with pertinent positive or pertinent negative responses have been documented in the HPI. ROS Other: All systems not noted in ROS Statement are negative. Past Medical History Past Medical History: COPD, Seizure Disorder Additional Past Medical History / Comment(s): TIA, Hx HEP c History of Any Multi-Drug Resistant Organisms: None Reported Past Surgical History: No Surgical Hx Reported Past Psychological History: Anxiety Smoking Status: Current every day smoker Past Alcohol Use History: None Reported Past Drug Use History: Marijuana General Exam Limitations: no limitations General appearance: alert, in no apparent distress Head exam: Present: atraumatic, normocephalic, normal inspection Eye exam: Present: normal appearance, PERRL, EOMI. Absent: scleral icterus, conjunctival injection, periorbital swelling ENT exam: Present: normal exam, normal oropharynx, mucous membranes moist Neck exam: Present: normal inspection, full ROM. Absent: tenderness, meningismus, lymphadenopathy Respiratory exam: Present: normal lung sounds bilaterally. Absent: respiratory distress, wheezes, rales, rhonchi, stridor Cardiovascular Exam: Present: regular rate, normal rhythm, normal heart sounds. Absent: systolic murmur, diastolic murmur, rubs, gallop, clicks Neurological exam: Present: alert, oriented X3, reflexes normal. Absent: motor sensory deficit Skin exam: Present: warm, dry, intact, normal color. Absent: rash Course Vital Signs 08/21/21 11:00 Temperature 97.9 F Pulse Rate 71 Respiratory 16 Rate Blood Pressure 124/82 O2 Sat by Pulse 97 Oximetry Medical Decision Making - Medical Decision Making Patient presented for a seizure. Patient has a history of seizures patient is medication noncompliant patient discharged with a prescription for his medications return parameters were discussed. - Lab Data Result diagrams: 08/21/21 12:13 08/21/21 12:13 Lab Results 08/21/21 08/21/21 Range/Units 12:13 12:13 WBC 5.9 (3.8-10.6) k/uL RBC 5.03 (4.30-5.90) m/uL Hgb 16.1 (13.0-17.5) gm/dL Hct 46.6 (39.0-53.0) % MCV 92.5 (80.0-100.0) fL MCH 32.0 (25.0-35.0) pg MCHC 34.6 (31.0-37.0) g/dL RDW 13.2 (11.5-15.5) % Plt Count 225 (150-450) k/uL MPV 7.0 Neutrophils % 62 % Lymphocytes % 28 % Monocytes % 7 % Eosinophils % 2 % Basophils % 1 % Neutrophils # 3.7 (1.3-7.7) k/uL Lymphocytes # 1.6 (1.0-4.8) k/uL Monocytes # 0.4 (0-1.0) k/uL Eosinophils # 0.1 (0-0.7) k/uL Basophils # 0.0 (0-0.2) k/uL Sodium 138 (137-145) mmol/L Potassium 3.7 (3.5-5.1) mmol/L Chloride 106 (98-107) mmol/L Carbon Dioxide 23 (22-30) mmol/L Anion Gap 9 mmol/L BUN 8 L (9-20) mg/dL Creatinine 0.86 (0.66-1.25) mg/dL Est GFR (CKD-EPI)AfAm >90 (>60 ml/min/1.73 sqM) Est GFR (CKD-EPI)NonAf >90 (>60 ml/min/1.73 sqM) Glucose 104 H (74-99) mg/dL Calcium 9.1 (8.4-10.2) mg/dL Magnesium 2.3 (1.6-2.3) mg/dL Total Bilirubin 1.2 (0.2-1.3) mg/dL AST 30 (17-59) U/L ALT 16 (4-49) U/L Alkaline Phosphatase 65 (38-126) U/L Total Protein 7.4 (6.3-8.2) g/dL Albumin 4.5 (3.5-5.0) g/dL Disposition Clinical Impression: Generalized seizure Disposition: HOME SELF-CARE Condition: Stable Instructions (If sedation given, give patient instructions): Seizure/Epilepsy Discharge Instructions & Follow-Up, Recurrent Seizures in Adults (ED) Additional Instructions: Please return to the Emergency Department if symptoms worsen or any other concerns. Prescriptions: levETIRAcetam [Keppra] 500 mg PO Q12HR #60 tab Is patient prescribed a controlled substance at d/c from ED?: No Referrals: Haven Chakraborty MD [Primary Care Provider] - 1-2 days Time of Disposition: 13:31
[2021-08-21 13:11] LABS: Basophils % (A) 1 %; Eosinophils # (A) 0.1 k/uL (0-0.7); Eosinophils % (A) 2 %; HCT 46.6 % (39.0-53.0); HGB 16.1 gm/dL (13.0-17.5); Lymphocytes # (A) 1.6 k/uL (1.0-4.8); Lymphocytes % (A) 28 %; MCHC 34.6 g/dL (31.0-37.0); MCV 92.5 fL (80.0-100.0); Monocytes # (A) 0.4 k/uL (0-1.0); Monocytes % (A) 7 %; Neutrophils # (A) 3.7 k/uL (1.3-7.7); Neutrophils % (A) 62 %; Platelet Count 225 k/uL (150-450); RBC 5.03 m/uL (4.30-5.90); RDW 13.2 % (11.5-15.5); WBC 5.9 k/uL (3.8-10.6)
[2021-08-21 13:42] VITALS: BP 135/75; PULSE 64; TEMP 98
== END 2021-08-21 13:41 | disposition home or self-care (01) ==
LOC: EC 10:57
DX: R56.9 Unspecified convulsions (principal); J44.9 Chronic obstructive pulmonary disease, unspecified; F17.200 Nicotine dependence, unspecified, uncomplicated; Z86.73 Personal history of transient ischemic attack (TIA), and cerebral infarction without residual deficits; Z91.013 Allergy to seafood
CPT/HCPCS: 36415; 93005; 80053; 83735; 85025; 99285; 96365; J1953